=== PATIENT | male | born 1995 | race Caucasian/White ===

== ENCOUNTER 2016-09-11 16:57 | Emergency (ER) | payer OTHER ==
--- NOTE | 2016-09-29 15:51 | ER ---
ADMIT: 09/11/2016 RM/LOC: ER [facility] MR#: [id number] [facility] [id number] MEL MEEHAN [address] [place] [address] Emergency Room Report SEX: M AGE: 21 : 1995 DATE: 09/11/2016 ADDENDUM: CHIEF COMPLAINT: Laceration. HISTORY OF PRESENT ILLNESS: This is a 21-year-old, who was lifting a box up into a helicopter. He has two lacerations on his right lower leg. Please see T-sheet for suture repair. CLINICAL IMPRESSION: Laceration to right lower leg. DISPOSITION: Having him keep the stitches in for 10 to 14 days. Keep it clean and dry. Use Motrin or Tylenol for pain. Activity as tolerated. Again, follow up in 10 to 14 days for suture removal. AKBAR Del Real / Kali Victor MD / modl JOB #: [id number] CC: Kali Victor MD, Attending Physician Ciara Wood MD, Family Physician
== END 2016-09-11 18:35 | disposition home or self-care (01) ==
LOC: ER 16:57
PROC: 0HQKXZZ Repair Right Lower Leg Skin, External Approach (ICD-10-PCS; principal; 2016-09-11)
DX: S81.811A Laceration without foreign body, right lower leg, initial encounter (principal); W26.8XXA Contact with other sharp object(s), not elsewhere classified, initial encounter